=== PATIENT | male | born 1950 | race Caucasian/White ===

== ENCOUNTER 2025-02-25 14:50 | Observation (INO) | payer MEDICARE, OTHER, SELFPAY ==
[2025-02-25] VITALS (9 sets, daily range): BP systolic 107–142; BP diastolic 67–88; BMI 28.5; BMI 26.3
[2025-02-25 08:59] LABS: Hematocrit 47.7 % (39.0-52.0); Hemoglobin 15.9 g/dL (13.0-18.0); Mean Corp Hgb Conc. 33.3 g/dL (33.0-37.0); Mean Corpuscular Volume 87.5 fL (80.0-94.0); Nucleated Red Blood Cells % 0 % (-); Platelet Count 301 10^3/uL (130-400); Red Cell Dist. Width 13.8 % (11.5-14.5)
[2025-02-25 09:08] LABS: ALT (SGPT) 31 U/L (0-50); AST (SGOT) 31 U/L (17-59); Albumin 4.7 g/dl (3.5-5.0); Alkaline Phosphatase 66 U/L (38-126); Blood Urea Nitrogen 15 mg/dl (9-20); Calcium 9.4 mg/dl (8.4-10.2); Carbon Dioxide 26 mmol/L (22-30); Chloride 105 mmol/L (98-107); Estimated Creatinine Clearance 72 ml/min; Glucose 106 mg/dl (70-99); Potassium 4.3 mmol/L (3.5-5.1); Sodium 140 mmol/L (135-145); Total Protein 7.7 g/dl (6.3-8.2); eGFR > 60.00
[2025-02-25 09:19] LABS: Troponin I < 0.012 ng/ml
--- NOTE | 2025-02-25 12:48 | ED.CVA ---
History of Present Illness
General
Chief Complaint: CVA/TIA Symptoms
Source: patient
Time Seen by Provider: 02/25/25 08:42
Onset of Stroke Symptoms
Onset of symptoms known: Yes
Date of onset of symptoms: 02/25/25
History of Present Illness
History of Present Illness:
Note:
CHIEF COMPLAINT(S)
Numbness and weakness in the right arm and leg.
HISTORY OF PRESENT ILLNESS
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 The weakness resembles symptoms experienced during his previous stroke. He denied
experiencing any chest pain, speech changes, or visual disturbances. He mentioned that he felt weak and found it difficult to walk upon getting up to use the bathroom. The patient also reported noticing right ankle swelling the other day. He did not
experience any headaches or recent fevers. The patient previously smoked but quit four to five years ago.
PAST MEDICAL AND SURIGICAL HISTORY
The patient has a history of a hemorrhagic stroke at the age of 28.
COPD
SOCIAL HISTORY
The patient quit smoking four to five years ago.
PHYSICAL EXAM
General: Alert and oriented, no acute distress.
Eyes, Ears, Nose, Mouth, and Throat: Oral mucosa moist, vision intact with no defects noted.
Neurological: Cranial nerves are intact, no pronator drift, normal tuaith-rf-wtye coordination, and normal uoei-rc-cppk evaluations. Strength and coordination testing showed good muscle strength and normal proprioception. 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
No respiratory distress
Heart regular without murmur
No lower extremity edema
No peripheral cyanosis
PROBLEM LIST
Acute:
1. Numbness and weakness in the right arm and leg.
2. Swelling of the right ankle.
Chronic:
1. History of hemorrhagic stroke.
PLAN
1. Obtain a head CT scan to assess for any acute changes.
2. Perform laboratory workup to identify any underlying issues.
3. Monitor neurological status and ensure no progression of symptoms.
DIFFERENTIAL DIAGNOSIS
The Differential Diagnosis includes, in no particular order and is not limited to:
1. Transient ischemic attack (TIA)
2. Stroke recurrence
3. Peripheral neuropathy
4. Inflammatory demyelinating polyneuropathy
5. Multiple sclerosis
6. Hypertensive vascular disease
7. Migraine with aura
8. Spinal cord compression
9. Brain tumor
10. Electrolyte imbalance
EKG
My independent EKG interpretation is:
- Time of EKG: Not specified.
- Rhythm: Normal sinus rhythm.
- Heart Rate: 75 beats per minute.
- Aguirre: Left axis deviation.
- Notable Intervals: Not specified.
- Abnormalities:
- RSR pattern in lead V1, suggesting right bundle branch block.
- No Q waves observed.
Disposition:
SUMMARY OF ENCOUNTER
The patient, a male with a history of chronic obstructive pulmonary disease (COPD) and previous hemorrhagic stroke, presented with numbness and weakness in the right arm and leg. Although there is no acute focal neurological deficit observed during
the examination, his history of cerebrovascular accident (CVA) raises concern for a possible central nervous system event such as a transient ischemic attack (TIA) or stroke.
PLAN
Further workup is required to evaluate for TIA or CVA. Initiated treatment with aspirin. Plan for admission for further observation and management.
MEDICAL DECISION MAKING
- Number and Complexity of Problems Addressed: Chronic conditions affecting care, including history of COPD and past hemorrhagic stroke. Differential Diagnosis includes transient ischemic attack (TIA), stroke recurrence, peripheral neuropathy, and
other potential causes as per the differential list provided.
DIAGNOSIS
1. Suspected Transient Ischemic Attack (G45.9)
2. History of Hemorrhagic Stroke (I61.9)
3. Chronic Obstructive Pulmonary Disease (J44.9)
Past History
Past History
ED Past Medical History: Arrthythmia (SVT s/p ablation 06/10), COPD and CVA
ED Past Surgical History: None
Social History
Tobacco: Former smoker
Alcohol: None
Drug: None
Living: with family
Phy Exam
Physical Exam
Physical Exam:
.
Course
Orders/Labs/Results
Orders:
Orders
02/25/25 08:42
Electrocardiogram (*1) Stat
Reason for Study: Other
Other Reason for Exam: neuro symptoms
CT Head W/o Iv Contrast Urgent
Reason For Exam: R sided weakness, hx of ICH
Bedside Glucose- Treatment ONCE
Cardiac Monitoring- Treatment ONCE
EKG- Treatment ONCE
02/25/25 08:49
Complete Blood Count/With Diff Urgent
Comprehensive Metabolic Panel Urgent
Troponin I Urgent
02/25/25 12:58
Aspirin 325 mg PO NOW STA
02/25/25 13:24
Admit/Transfer Patient As Directed
Co-Sign Provider:
Level of Care: Observation services
Assign to:: Telemetry
Physician / Group: Hospitalist
Diagnosis: CVA/ TIA symtpoms
Patient Condition: Fair
Reason for Telemetry: CVA/TIA
Date to Stop Telemetry: 02/28/25
Time to Stop Telemetry: 11:00
Reason for Hospitalization: CVA/ TIA symptoms
Expected length of stay greater than two midnights?: Yes
ELOS- Estimated Length of Stay in days: 3
I certify the patient meets the requirements for IP care: Yes
02/25/25 13:30
PRN Pain Medication Management As Directed
May give lesser potent ordered pain med per pt: Yes
preference::
Protocol:: Medication orders for pain may be administered in a
manner that supports deferring to patient preference
when the pt is:
- Requesting an ordered lesser potent pain medication.
Least to most potent pain medications are defined
as: acetaminophen < NSAID < tramadol < opioids
(morphine, oxycodone, hydromorphone).
- Requesting a lesser dose of the same medication IF
ORDERED.
- Requesting a less intrusive route of administration
if both routes are prescribed by the provider (PO <
IV).
02/25/25 13:32
Code Status As Directed
Resuscitation Status: Do not resuscitate
Reached after discussion with pt or family/Healthcare POA: Yes
02/25/25 13:40
DNR Bracelet Application ONCE
02/25/25 15:32
Acetaminophen [Tylenol/Feverall] 650 mg RECTAL Q4HPRN PRN
Acetaminophen [Tylenol] 650 mg PO Q4HPRN PRN
02/25/25 15:32
Case Management Consult ONCE
Case Management Consult: Discharge Planning
Comment: stroke/tia
DIETARY IP CONSULT Routine
Reason for Consult: stroke/TIA
NEUROLOGY CONSULT Urgent
Consulting Provider: Jason Kidd
Was physician already notified: Yes
Reason for consult: CVA TIA
Education And Development Manager Urgent
Activity As Directed
Activity Level: As Tolerated
NIH Stroke Scale As Directed
Directions: Per protocol
Comment: every shift and with any change in condition or mental status
Neurological Checks As Directed
Frequency: q4h
Additional Instructions:: q4h x 24h upon admission to the floor, then qshift & with any change in condition
and mental status
Patient Education As Directed
Type: Stroke education packet
Comment: provide to patient and family
Pneumatic Compression Sleeves As Directed
Type: Knee high
Vital Signs As Directed
Frequency: Per unit guidelines
Ot Eval And Treat Routine
Pt Eval And Treat Routine
Activity Level: As Tolerated
Speech Therapy Eval & Treat Routine
DX Deep Vein Thrombosis Video Routine
02/25/25 16:23
Metoprolol Xl [Toprol Xl] 12.5 mg PO [id number] PRN palpitations
02/25/25 18:00
Enoxaparin Sodium [Lovenox] 40 mg SC QPM
Rosuvastatin Calcium [Crestor] 20 mg PO QPM
02/25/25 20:00
Budesonide/Formoterol 160/4.5 [Symbicort 160/4.5 Mcg Inhaler] 2 puff INH R BID
02/25/25 22:00
Aspirin Low Dose EC [Aspir Low (Enteric Coated)] 81 mg PO HS
02/26/25 05:50
Cardiovascular Evaluation IN AM
Complete Blood Count/With Diff IN AM
Magnesium IN AM
02/26/25 08:00
Aspirin Chewable [Low Strength Aspirin] 81 mg PO DAILY
Verapamil Extended Release [Calan Extended Release] 360 mg PO DAILY
02/28/25 11:00
DC Protocol for Telemetry ONCE
Abnormal Lab Results
02/25/25
08:49
WBC 13.1 H 10^3/uL
(4.8-10.8)
Abs Immat Gran (auto) 0.1 H 10^3/uL
(0-0.05)
Absolute Neuts (auto) 9.7 H 10^3/uL
(1.4-6.5)
Absolute Monos (auto) 1.3 H 10^3/uL
(0.1-0.6)
Lymphocytes % 13.6 L %
(20.5-51.1)
Monocytes % 9.7 H %
(1.7-9.3)
Glucose 106 H mg/dl
(70-99)
02/25/25 08:49
02/25/25 08:49
Vital Signs
Initial and Last Documented VS:
Initial Vital Signs
Temp Pulse Resp BP Pulse Ox
98.7 F 81 16 132/88 96
02/25/25 08:42 02/25/25 08:42 02/25/25 08:42 02/25/25 08:42 02/25/25 08:42
Last Documented Vital Signs
Temp Pulse Resp BP Pulse Ox
97.6 F 77 16 120/73 93
02/26/25 13:49 02/26/25 13:49 02/26/25 13:49 02/26/25 13:49 02/26/25 13:49
*Pulse Oximetry
SaO2: 94
Oxygen Mode of Delivery: Room air
Patient hypoxic: no
*Informaticist Interpretation
Rate: normal
Interpretation: normal
Rhythm: sinus
*Critical Care Note
Total Time (30-74mins, 75-104mins- exclusive of procedures): 30 minutes
ED Attending Note
-
Portions of this chart may have been created with voice recognition software.� Occasional wrong word or��sound alike� substitutions may have occurred due to the inherent limitations of voice recognition software.
Discharge Plan
Departure
Patient Disposition: Admit
Date of Disposition: 02/25/25
Time of Disposition: 12:53
Admit to: Telemetry
Presentation/result/management discussed w/ accepting MD/DO: Hospitalist
Discharge Problem:
possible CVA
Interventions
Interventions:
*Risk Screen - Suicide Last Done: 02/25/25 08:47
*General Assessment Last Done: 02/25/25 08:47
*Neglect/Abuse Screening Last Done: 02/25/25 08:47
*ED- Fall Risk Assessment Last Done: 02/25/25 08:47
*ED COVID-19 Vaccine History Last Done: 02/25/25 08:47
*Nursing Disposition Last Done: 02/25/25 15:12
ED- Pulmonary Assessment Last Done: 02/25/25 08:49
ED- Neurological Assessment Last Done: 02/25/25 08:49
ED- Cardiac Assessment Last Done: 02/25/25 08:49
ED Swallowing Screen Last Done: 02/25/25 09:17
Discharge Date and Time
Discharge Date/Time: 02/25/25 15:12
--- NOTE | 2025-02-25 13:04 | W.PN.UPDATE ---
Update Note
Progress Note Update
I personally performed a history and physical exam of the patient and discussed management with the resident. I reviewed the resident's note and agree with the documented findings and plan of care HPI/CC.
74 y/o M who p/w CC R-sided weakness which began when he woke up this AM.
Gen: NAD, AAOx3.
Eyes: EOMI, PERRLA, no scleral icterus.
Neck: supple.
CV: RRR, +S1/S2, no m/r/g.
Resp: CTAB, no rales, wheezes, or rhonchi.
Abd: +BS, soft, NT, ND
Skin: No rashes.
Neuro: CN 2-12 intact, RUE 4/5, RLE 3/5
Psych: Normal mood and affect.
Lab Results
02/25/25
08:49
WBC 13.1 H
RBC 5.45
Hgb 15.9
Hct 47.7
MCV 87.5
MCH 29.2
MCHC 33.3
RDW 13.8
Plt Count 301
MPV 8.9
Abs Immat Gran (auto) 0.1 H
Absolute Neuts (auto) 9.7 H
Absolute Lymphs (auto) 1.8
Absolute Monos (auto) 1.3 H
Absolute Eos (auto) 0.2
Absolute Basos (auto) 0.1
Immature Gran % 0.5
Neutrophils % 74.5
Lymphocytes % 13.6 L
Monocytes % 9.7 H
Eosinophils % 1.1
Basophils % 0.6
Nucleated RBC % 0
Sodium 140
Potassium 4.3
Chloride 105
Carbon Dioxide 26
BUN 15
Creatinine 0.9
Estimated Creat Clear 72
eGFR > 60.00
Glucose 106 H
Calcium 9.4
Total Bilirubin 1.1
AST 31
ALT 31
Alkaline Phosphatase 66
Troponin I < 0.012
Total Protein 7.[address] Brain: No evidence of acute intracranial abnormality.
ECG (read by me): NSR @ 75, L-axis, RBBB, no acute ST/TW changes
R-sided weakness/paraesthesias:
-h/o hemorrhagic CVA
-CT Brain unremarkable as above
-monitor on tele
-neurochecks Q4H
-c/s neuro
-check MRI brain
-cont statin
COPD:
-not in acute exac
-cont Breztri
SVT s/p ablation:
-cont BB/CCB with holding parameters
FULL/Lovenox
[2025-02-25] MEDS: ASPIRIN 325 MG PO (13:26)
--- NOTE | 2025-02-25 13:55 | HPS.HSE ---
Addendum entered and electronically signed by Maninder Lopez MD, Resident 02/27/25 16:52:
Allergies
Allergy/AdvReac Type Severity Reaction Status Date / Time
No Known Allergies Allergy Verified 09/03/22 16:29
Home Medications
multivitamin with folic acid 400 mcg tablet (Tab-A-Chuck) 1 tab PO DAILY Supplement 05/20/19
verapamil 180 mg tablet,extended release 360 mg (2 x 180 mg) PO DAILY #60 tabs 05/26/19
aspirin 81 mg tablet,delayed release 81 mg PO HS Blood Clot Prevention/Tx 02/25/25
budesonide 160 mcg-glycopyr 9 mcg-formot 4.8 mcg/actuation HFA inhaler (Breztri Aerosphere) 2 inh inhalation R BID Lung/Breathing Issues 02/25/25
metoprolol succinate 25 mg tablet,extended release 24 hr 12.5 mg PO [id number] PRN palpitations 02/25/25
rosuvastatin 20 mg tablet (Crestor) 20 mg PO DAILY High Cholesterol 02/25/25
Original Note:
Family Physician
-
Family Physician: Emma Collins MD
Chief Complaint
-
Acute right-sided weakness extending from right shoulder/arm all the way down to right leg
History of Present Illness
Mr. Laci Phelps is a 74-year-old male with history of SVT (no ablation), COPD, osteoporosis, and CVA (38 years ago) who presented to the ED today with right-sided arm and leg weakness. He states that this is his second episode. His first
episode was last week. It happened in the morning when he woke up, felt numb/weak from left shoulder/arm all the way down to the left leg, but was able to weight-bear and states that it resolved on its own in about an hour. Today however, he woke
up with right-sided weakness and was unable to walk like his usual self. He endorsed stiffness, weakness (generalized and specific), and no resolution despite waiting through the morning. As such, he decided to come to the ED for further
evaluation. His zhpcmjks-ir-ony Doris is bedside to endorse history. Of note, he denies nausea/vomiting, chest pain, dizziness, vision changes, paralysis, recent infection, recent travel, sick contacts, or any other symptoms. He gets most of his
care at the [facility], for which records are pending. In the ED, CT head is negative for acute intracranial abnormality. Physical exam is notable for decreased strength in right lower extremity.
Medical History
Past Medical History
Past Medical History: Reports Arrhythmia (SVT) and COPD (Former smoker, quit in 2019)
Additional Past Medical History:
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
Past Surgical History: Reports None
Social History
Tobacco: Former Smoker (18-vaub-dcnb history, quit in 2019)
Alcohol: None
Drug: None
Living: With Family
Family History
Family History: Not pertinent
Allergies / Home Medications
Allergies reflects when Allergies were last updated in [facility].
Home Medications with original date entered in [facility]
Allergy/Medication List:
No known allergies
Review of Systems
-
History Source: Patient
A 12 point ROS was completed and negative except as noted: Yes
Neurological: Reports Weakness (Right shoulder, right arm, right leg) and Numbness (Right shoulder, right arm, right leg)
Physical Exam
Vital Signs
Vital Signs
Temp Pulse Resp BP Pulse Ox
98.7 F 64 15 107/69 94
02/25/25 08:42 02/25/25 12:19 02/25/25 12:19 02/25/25 12:19 02/25/25 12:48
Physical Exam
General: Well Developed, Well Nourished, No Apparent Distress, Comfortable, Conversant and Other (Sitting up in bed with right arm slumped, answering and conversing appropriately)
HEENT: NormoCephalic, Moist mucous membranes and Atraumatic
Respiratory: Clear and Non Labored Respirations
Cardiac: S1/S2 and Tachycardia (Baseline)
GI: Soft, Non Tender, Non Distended and Normal Bowel Sounds
Skin: Warm and Dry
Neuro: AO x 3, No Motor Deficits (Right-sided weakness, worse in the legs) and No Sensory Deficits
Psych: Calm and Intact Judgment/Insight
Laboratory Results
-
02/25/25 08:49
02/25/25 08:49
Laboratory Results
Total Bilirubin 1.1 mg/dl (0.2-1.3) 02/25/25 08:49
AST 31 U/L (17-59) 02/25/25 08:49
ALT 31 U/L (0-50) 02/25/25 08:49
Alkaline Phosphatase 66 U/L (38-126) 02/25/25 08:49
Troponin I < 0.012 ng/ml 02/25/25 08:49
Data Reviewed
-
Diagnostic Radiology: Discussed with Physician
Lab Data: Discussed with Physician
Impression/Plan
-
IMPRESSION:
Mr. Laci Phelps is a 74-year-old male with history of SVT (no ablation), COPD, osteoporosis, and CVA (38 years ago) who presented to the ED today with right-sided arm and leg weakness with a negative head CT being admitted for observation on
telemetry along with workup for possible TIA.
PLAN:
#Right-sided weakness, new
#History of hemorrhagic CVA in 1986
-S/p aspirin 325 mg 02/25/2025
-Monitor on telemetry, neurochecks every 4 hours
-Follow-up MRI brain
-Continue rosuvastatin 20 mg daily: Consider redosing after lipid panel
-Continue aspirin 81 mg p.o. at bedtime
#COPD
-Continue Breztri Aerosphere inhaler twice daily
#SVT
-Continue verapamil 360 mg p.o. daily
-Continue metoprolol succinate 12.5 mg p.o. twice daily
DVT prophylaxis: Lovenox
CODE STATUS: DNR
--- NOTE | 2025-02-25 15:25 | PTCARENOTE ---
02/25- Patient transferred and oriented to unit without issue. AAOX3. Skin CDI. Telemetry #41, currently NSR with a BBB. NIH score is currently 0. Patient denies any current needs or concerns.
--- NOTE | 2025-02-25 15:27 | CM ---
Patient seen at bedside in ED> Patient states that he lives in a 2 story home with his son. Patient stated that he has no DME at home and [facility], Dr[facility] Adam. [facility] and if
needed will use the [facility] in [place]. Patient reviewed OBS/CARPIO form with CM and signed form scanned into medical record by mobile unit assistant. Patient plan is to return to home with patient son. CM will continue to follow for discharge planning needs.
Plan; home with no needs vs home with VN; pending medical treatment plan.
[2025-02-25] MEDS: CRESTOR 20 MG PO (17:28)
[2025-02-25] MEDS: LOVENOX 40 MG SC (17:29)
[2025-02-25] MEDS: SYMBICORT 160/4.5 MCG INHALER 2 PUFF INH (20:16)
[2025-02-26 03:09] VITALS: BP 128/76
[2025-02-26 06:28] LABS: Hematocrit 43.8 % (39.0-52.0); Hemoglobin 14.4 g/dL (13.0-18.0); Mean Corp Hgb Conc. 32.9 g/dL (33.0-37.0); Mean Corpuscular Volume 88.0 fL (80.0-94.0); Nucleated Red Blood Cells % 0 % (-); Platelet Count 245 10^3/uL (130-400); Red Cell Dist. Width 13.6 % (11.5-14.5)
[2025-02-26 06:40] LABS: HDL Cholesterol 66 mg/dl; LDL Cholesterol, Calculated 64 mg/dl; Magnesium 2.2 mg/dl (1.6-2.3); Very Low Density Lipoprotein 18 mg/dl (0-30)
[2025-02-26] MEDS: SPIRIVA RESPIMAT 2.5 MCG 2 PUFF INH (07:46)
[2025-02-26] MEDS: SYMBICORT 160/4.5 MCG INHALER 2 PUFF INH (07:46)
--- NOTE | 2025-02-26 07:48 | W.PN.UPDATE ---
Update Note
Progress Note Update
I saw and evaluated the patient. I reviewed the resident�s note and agree with findings and plan as documented in the resident�s note.
Patient reports right-sided weakness is improved.
Gen: NAD, AAOx3.
Eyes: EOMI, PERRLA, no scleral icterus.
Neck: supple.
CV: remains RRR, +S1/S2, no m/r/g.
Resp: remains CTAB, no rales, wheezes, or rhonchi.
Abd: +BS, soft, NT, ND
Skin: No rashes.
Neuro: CN 2-12 intact, RUE 5/5, RLE 5/5
Psych: Normal mood and affect.
CT Brain: No evidence of acute intracranial abnormality.
ECG (read by me): NSR @ 75, L-axis, RBBB, no acute ST/TW changes
CTA head/neck: Findings compatible with Bovine aortic arch, as noted above. Minor atherosclerotic plaque to carotid bifurcations and proximal internal carotid arteries bilaterally without hemodynamically significant stenosis. Mildly dominant left
vertebral artery. No findings to suggest internal carotid artery or vertebral artery dissection bilaterally. No findings to suggest proximal intracranial arterial stenosis bilaterally. Suspected bilateral subcentimeter low-attenuation thyroid
nodules. Consider elective Thyroid Ultrasound for more complete evaluation.
MRI brain: No evidence of acute intracranial abnormality. Focal area of old infarction in the left hemisphere as described, with resultant hydrocephalus ex vacuo of the left lateral ventricle. 2 mm focus of CSF signal intensity in the posterior
aspect of the left lentiform nucleus, which could represent old lacunar infarcts or prominent perivascular space. Mild to moderate diffuse atrophy. Mild T2 and FLAIR white matter hyperintensities, commonly seen with aging and usually attributed to
small vessel ischemic disease.
R-sided weakness/paraesthesias:
-h/o hemorrhagic CVA
-Tele reviewed, no afib/flutter
-neurochecks Q4H
-MRI brain without acute intracranial abnormality as above
-cont statin/ASA
-neuro saw in c/s. Case discussed with Dr. Kidd on 02/26/25 and he feels that the patient had recrudescence of old stroke. No evidence of new stroke or new TIA. Cont ASA/statin. If symptoms persist will get outpt EEG.
COPD:
-not in acute exac
-cont Breztri
SVT s/p ablation:
-cont BB/CCB with holding parameters
FULL/Lovenox
Medically cleared for discharge.
Total time spent on d/c = 35 min. This included today's physical exam, progress note, review of laboratory and diagnostic data, preparation of discharge documents and prescriptions, and discussions about the pt's hospital course and discharge plan
with the patient and other medical technologist blood bank involved in the patient's care.
[2025-02-26 07:57] LABS: ALT (SGPT) 24 U/L (0-50); AST (SGOT) 24 U/L (17-59); Albumin 3.9 g/dl (3.5-5.0); Alkaline Phosphatase 57 U/L (38-126); Blood Urea Nitrogen 20 mg/dl (9-20); Calcium 8.6 mg/dl (8.4-10.2); Carbon Dioxide 23 mmol/L (22-30); Chloride 107 mmol/L (98-107); Estimated Creatinine Clearance 77 ml/min; Glucose 87 mg/dl (70-99); Potassium 4.1 mmol/L (3.5-5.1); Sodium 137 mmol/L (135-145); Total Protein 6.5 g/dl (6.3-8.2); eGFR > 60.00
[2025-02-26] MEDS: CALAN EXTENDED RELEASE 360 MG PO (08:08)
[2025-02-26] MEDS: LOW STRENGTH ASPIRIN 81 MG PO (08:08)
[2025-02-26 08:36] VITALS: BP 125/75
--- NOTE | 2025-02-26 08:49 | CON.NEURO4 ---
Addendum entered and electronically signed by Jason Kidd MD 02/26/25 12:57:
Studies reviewed.
I have personally examined the patient. I reviewed and agree with the FUSE MAKER's Note.
My addenda:
Awake, alert, interactive. No acute distress.
Speech intact.
Follows 2-step requests w/o difficulty. No tremor.
Extra-ocular movements grossly intact with exception of 1+ right eye exotropia
Facial movements full and symmetric. Hearing intact to normal conversational volume.
Normal UE movements bilaterally.
Neck: full ROM.
Chest: no dyspnea
Heart: no JVD
Ext: (-) Clubbing, (-) Cyanosis, (-) Edema
IMPRESSIONS/RECOMMENDATIONS:
Abrupt onset of right sided weakness with prior history of left hemispheric hemorrhagic stroke
In light of the patient's unremarkable MRI of the brain for acute events, this may represent either recrudescence due to unclear etiology or may be due to focal onset seizures
Would continue the patient on usual aspirin as there is no evidence of a structural abnormality producing new symptoms
Check outpatient EEG to determine if focal onset seizures are producing his current symptoms
Continue current medications for cholesterol lowering
D/W patient
Will continue to follow as outpatient.
Original Note:
Documented by User: Jayna Ricketts NP 02/26/25 09:50
Consultation - Neurology 4
-
CONSULTING PHYSICIAN: Jason Kidd MD
REFERRING PHYSICIAN: Hospitalists/Dr. Tamara MD Resident
DICTATED BY: WILSON Lopez
DATE/TIME OF REQUEST: 02/25/25
DATE/TIME OF CONSULTATION: 02/26/25
Reason for Consultation: Right-sided weakness
History of Present Illness:
This is a 74-year-old left-handed male who has presented to the hospital on 02/25/25 with report of right-sided weakness. Patient has a history of a left hemisphere hemorrhagic stroke in 1986 associated with right-sided weakness that completely
resolved. He reports that he went to bed two nights ago on 02/24/25 at 2200 in his usual state. He didn't wake up during that night at all, but awoke yesterday for the day at 0700 and noted his right arm and leg felt weak. He is vague about details,
but notes that his [id number] might have been concerned about these symptoms in addition to his right ankle being swollen last week, but he notes it was mild compared to his current symptoms. CT head was obtained on arrival and is negative for
any acute abnormalities. He was not a candidate for TNK/IAT due to NIHSS 0. Today (02/26/25), he notes that his right side still feels weak, it's only 60% of his baseline. He endorses difficulty walking to the bathroom due to his right leg weakness,
he has to hold onto furniture. He denies any headache, dizziness, vision changes, speech/swallow difficulty, and numbness. He is taking aspirin 81mg daily at home.
Past Medical History: Left hemisphere hemorrhagic stroke 1986, SVT, COPD
Surgical History: Cardiac cath, vasectomy.
Family History: Reviewed and noncontributory.
Social History: Former smoker.
Allergies: No known allergies.
Home Medications: See below.
Review of Symptoms:
Patient denies any fever, headache, chest pain, shortness of breath, GI or symptoms.
�Per the HPI.�All systems are reviewed negative except above.
Physical Exam:
The patient is afebrile, abdomen is nondistended, breathing is unlabored, skin is warm and dry, no edema.
NIH Stroke Scale:
I performed the NIH stroke scale on the patient on 02/26/25 at 0900. The patient scored 1 points on the NIH stroke scale assessment, which were assigned as follows: See below.
Neurologic Examination:
The patient is awake, alert and oriented x 3. He is able to follow commands and answer questions appropriately. There is no aphasia or dysarthria. On cranial nerve assessment, pupils are 3 mm bilateral, round and reactive to light and
accommodation. Visual phan are full. 1+ esotropia left eye. Extraocular movements are intact, slow saccades. Facial sensations are intact and bilaterally symmetrical, there is no facial asymmetry. Hearing is intact bilaterally to normal
conversation volume. Tongue palate and uvula are midline. Sternocleidomastoid strengths are full bilaterally. Motor strengths are 5/5 left upper, 5-/5 right upper, 4+ right lower, and 5/5 left lower extremities on medical research [place] scale.
There is slight drift in the RLE. No involuntary movement noted. Deep tendon reflexes are 2+ bilateral upper and lower extremities and Babinski is absent bilaterally. There was no extinction noted on double simultaneous stimulation. Coordination is
intact by finger to nose bilaterally.
Lab Results: See below.
Neuro Imaging:
1. CT Head 02/25/25: There is focal decreased density involving left posterior insula, which also extends superiorly to involve the periventricular white matter. Findings likely represent encephalomalacia in this patient with reported history of
previous cranial hemorrhage. No acute abnormality.
Differentials for the patient's presentation include:
1. Concern for an acute/subacute left hemisphere ischemic infarct producing ongoing right-sided weakness.
2. CT head is negative for acute hemorrhage.
3. Need vessel imaging to rule out large vessel stenosis.
Patient has the following risk factors for their symptoms: HTN, HLD, hx stroke, age, hx smoking
IV Tenecteplase/IAT candidacy: Not a candidate due to NIHSS 0 on arrival.
Recommendations:
-Would initiate DAPT with aspirin 81mg and clopidogrel 75mg daily for 21 days. Checking aspirin efficacy.
-Goal normotension as symptom onset was 24 hours ago.
-CTA head/neck pending.
-MRI brain noncontrast pending.
-LDL goal <70. LDL is 64. Okay to continue home rosuvastatin 20mg daily as LDL is at goal.
-Goal normoglycemia, hbA1c is pending.
-NIHSS and neurological checks per unit guidelines.
-Provide patient with a stroke education packet.
-PT/OT evaluations.
-DVT prophylaxis.
Discussed patient care with: Dr. Kidd, the patient
Vital Signs and Labs
-
Vital Signs and Labs:
Vital Signs
Temp Pulse Resp BP Pulse Ox
97.7 F 70 16 125/75 94
02/26/25 08:36 02/26/25 08:36 02/26/25 08:36 02/26/25 08:36 02/26/25 08:36
Lab Results
02/26/25 05:50
02/26/25 07:20
Sodium Cancelled 02/26/25 07:20
Potassium Cancelled 02/26/25 07:20
BUN Cancelled 02/26/25 07:20
Glucose Cancelled 02/26/25 07:20
Calcium Cancelled 02/26/25 07:20
LDL Cholesterol, Calc 64 mg/dl 02/26/25 05:50
Medications
-
Active Medications
Generic Name Dose Route Start Last Admin
Trade Name Freq PRN Reason Stop Dose Admin
Acetaminophen 650 mg 02/25/25 15:32
Acetaminophen 650 Mg Rectal Suppository RECTAL 03/25/25 15:31
Q4HPRN PRN
FELDMAN, mild pain, or temp >100.4F
Acetaminophen 650 mg 02/25/25 15:32
Acetaminophen 325 Mg Tablet PO 03/25/25 15:31
Q4HPRN PRN
FELDMAN, mild pain, or temp >100.4F
Aspirin 81 mg 02/26/25 08:00 02/26/25 08:08
Aspirin 81 Mg Chewable Tablet PO 03/26/25 07:59 81 mg
DAILY PRINCE Administration
Budesonide/Formoterol Fumarate 2 puff 02/25/25 20:00 02/26/25 07:46
Symbicort Inhaler 160/4.5 INH 03/25/25 19:59 2 puff
R BID PRINCE Administration
Protocol
Enoxaparin Sodium 40 mg 02/25/25 18:00 08/06/25 17:29
Enoxaparin Sodium 40 Mg/0.4 Ml Syringe SC 03/25/25 17:59 40 mg
QPM PRINCE Administration
Metoprolol Succinate 12.5 mg 02/25/25 16:23
Metoprolol 12.5 Mg Extended Release Dose (1/2 Of 25 Mg Xl Tablet) PO 03/25/25 16:22
[id number] PRN
palpitations
Rosuvastatin Calcium 20 mg 02/25/25 18:00 02/25/25 17:28
Rosuvastatin (Crestor) 20 Mg Tablet PO 03/25/25 17:59 20 mg
QPM PRINCE Administration
Sodium Chloride 0 flush 02/25/25 16:00
Sodium Chloride 0.9% (Flush) Syringe IV 03/25/25 15:59
PER PROTOCOL PRINCE
Tiotropium [place] 2 puff 02/26/25 08:00 02/26/25 07:46
Tiotropium (Spiriva Respimat) 2.5 Mcg Inhaler INH 03/26/25 07:59 2 puff
R DAILY PRINCE Administration
Protocol
Verapamil HCl 360 mg 02/26/25 08:00 02/26/25 08:08
Verapamil 180 Mg (Extended Release) Tablet PO 03/26/25 07:59 360 mg
DAILY PRINCE Administration
Home Medications
�Medication �Instructions �Recorded
multivitamin with folic acid 400 1 tab PO DAILY Supplement 05/20/19
mcg tablet (Tab-A-Chuck)
verapamil 180 mg tablet,extended 360 mg (2 x 180 mg) PO DAILY #60 05/26/19
release tabs
aspirin 81 mg tablet,delayed 81 mg PO HS Blood Clot 02/25/25
release Prevention/Tx
budesonide 160 mcg-glycopyr 9 2 inh inhalation R BID 02/25/25
mcg-formot 4.8 mcg/actuation HFA Lung/Breathing Issues
inhaler (Breztri Aerosphere)
metoprolol succinate 25 mg 12.5 mg PO [id number] PRN palpitations 02/25/25
tablet,extended release 24 hr
rosuvastatin 20 mg tablet (Crestor) 20 mg PO DAILY High Cholesterol 02/25/25
NIH Stroke Score
Subsequent NIH Scale
Date of Subsequent NIH Scale: 02/26/25
Time of Subsequent NIH Scale: 09:00
NIH Stroke Score
Level of Consciousness: 0 - Alert
LOC Questions: 0-Answers both correctly
LOC Commands: 0-Performs both correctly
Best Horizontal Gaze: 0-Normal
Visual Phan: 0=Normal, no visual loss
Facial Palsy: 0=Normal, symmetrical
Motor - Right Arm: 0=No drift 10 seconds
Motor - Left Arm: 0=No drift 10 seconds
Motor - Right Le-Drift < 5 seconds
Motor - Left Le-No drift 5 seconds
Limb Ataxia: 0-Absent
Sensation: 0-Normal
Best Language: 0-No aphasia
Dysarthria: 0-Normal
Extinction and Inattention: 0-No abnormality
NIH Total Score:: 1
Modified [place] (mRS) Score
Modified [place] Scale (mRS): Slight disability. Able to look after own affairs.
Score: 2
Alteplase Contraindication
Inclusion and Exclusion criteria reviewed: Yes

Documented by User: Jason Kidd MD 02/26/25 10:23
NIH Stroke Score
NIH Stroke Score
NIH Total Score:: 1
Modified [place] (mRS) Score
Score: 2
[2025-02-26] MEDS: ATIVAN 1 MG PO (09:15)
[2025-02-26 11:04] VITALS: BP 122/73
--- NOTE | 2025-02-26 11:21 | W.PN.HOSP.TC ---
Today's Communication/Plan
-
Follow-up brain MRI and CTA head and neck without IV contrast
Initiate DAPT on discharge for 21 days
PT/OT consult
Assessment / Plan
Assessment / Plan
Mr. Laci Phelps is a 74-year-old male with history of SVT (no ablation), COPD, osteoporosis, and CVA (38 years ago) who presented to the ED today with right-sided arm and leg weakness with a negative head CT being admitted for observation on
telemetry along with workup for possible TIA. On 02/26/2025, 1 day after admission, his symptoms transiently improved, with imaging studies pending and neuro following.
PLAN:
#Right-sided weakness, new
#History of hemorrhagic CVA in 1986
- Consult neuro, appreciate recs
--Initiate DAPT with aspirin 81 mg and clopidogrel 75 mg daily for 21 days
--Provide patient with a stroke education packet
--PT/OT consult
-S/p aspirin 325 mg 02/25/2025
-Monitor on telemetry, neurochecks every 4 hours
-Follow-up MRI brain and CTA head and neck without IV contrast
-Continue rosuvastatin 20 mg daily (per lipid panel 02/25/2025)
-Continue aspirin 81 mg p.o. at bedtime
#COPD
-Continue Breztri Aerosphere inhaler twice daily
#SVT
-Continue verapamil 360 mg p.o. daily
-Continue metoprolol succinate 12.5 mg p.o. twice daily
DVT prophylaxis: Lovenox
CODE STATUS: DNR
Anticipated Discharge: Within 24 hours (Pending unremarkable brain MRI and CTA)
Subjective/Interval History
-
Date of Service: February 26, 2025
-This morning, we had a brief discussion as he was about to be transported for his imaging studies. His NIHHS stroke scale is 0 today. He reports being able to bear weight on his right leg and improved strength of right leg and right arm compared
to yesterday. Overall, he is generally feeling better and states that he is slowly going back to his baseline state of health.
Objective Data
-
Labs:
Laboratory Results
02/25/25 02/26/25 02/26/25
19:30 05:50 07:20
WBC 9.7
Hgb 14.4
Hct 43.8
Plt Count 245
Sodium Cancelled 137 Cancelled
Potassium Cancelled 4.1 Cancelled
Chloride Cancelled 107 Cancelled
Carbon Dioxide Cancelled 23 Cancelled
BUN Cancelled 20 Cancelled
Creatinine Cancelled 0.9 Cancelled
Glucose Cancelled 87 Cancelled
Calcium Cancelled 8.6 Cancelled
Total Bilirubin Cancelled 0.9 Cancelled
AST Cancelled 24 Cancelled
ALT Cancelled 24 Cancelled
Alkaline Phosphatase Cancelled 57 Cancelled
Vital Signs:
Vital Signs
Temp Pulse Resp BP Pulse Ox
97.7 F 72 16 122/73 92
02/26/25 11:04 02/26/25 11:04 02/26/25 11:04 02/26/25 11:04 02/26/25 11:04
I&O
02/25/25 02/26/25 02/27/25
06:59 06:59 06:59
Intake Total 0 / 0
Balance 0 / 0
Review of Systems
-
History Source: Patient
All other systems: Reviewed and negative
Constitutional: Reports Weakness (Right-sided, slowly improving)
Neuro: Reports Weakness (Right leg greater than left)
Physical Exam
-
General: Well Developed, Well Nourished, No Apparent Distress, Comfortable, Conversant and Other (In a stretcher in the middle of the hallway about to be transported to imaging studies)
HEENT: Normocephalic, Atraumatic and Moist Mucous Membranes
Respiratory: Clear to Auscultation and Non Labored Respirations
Cardiac: Regular Rhythm and S1/S2
GI: Soft, Nontender and Nondistended
Musculoskeletal: No Clubbing, No Cyanosis and No Edema
Skin: Warm and Dry
Neuro: AO x 3, No Motor Deficits (Bilateral lower extremity strength 4/5 compared to yesterday's exam, where right lower extremity was 3/5), Nonfocal/Grossly Intact and No Sensory Deficits
Psych: Calm and Intact Judgement/Insight
[2025-02-26 11:45] VITALS: BP 116/63; PULSE 66; O2SAT 94
[2025-02-26 11:49] VITALS: BP 116/63; PULSE 67; O2SAT 94
[2025-02-26 13:06] LABS: VerifyNow Aspirin 405 ARU
[2025-02-26 13:20] LABS: Urine Character Clear (Clear)
[2025-02-26 13:49] VITALS: BP 120/73
[2025-02-26 14:09] LABS: Urine Squamous Cell 0-2 /LPF (Few)
[2025-02-26 14:10] LABS: Urine Red Blood Cell 0-2 /HPF (0-2); Urine Urothelial Cell 0-2 /LPF (FEW); Urine White Cell 0-2 /HPF (0-5)
--- NOTE | 2025-02-26 14:56 | CM ---
CM reviewed chart, call to patient to offer VN services, left direct number for CM. Will continue to follow for all discharge planning needs.
Plan; home no needs, left VM to offer VN
--- NOTE | 2025-02-26 16:20 | W.DCSUMMARY ---
Discharge Summary
Discharge Data
Date of Admission: 02/25/25
Date of Discharge: 02/26/25
-
Pending Results: No
Hospital Course
Discharging Physician : Maninder Lopez MD/[facility]
Disposition : Home
Principal Discharge diagnosis : R-sided weakness/paraesthesias
Hospital Course : Mr. Laci Phelps is a 74-year-old male with history of SVT (no ablation), COPD, osteoporosis, and CVA (38 years ago) who presented to the ED on 02/26/25 with right-sided arm and leg weakness. He states that this is his second
episode. His first episode was last week. It happened in the morning when he woke up, felt numb/weak from left shoulder/arm all the way down to the left leg, but was able to weight-bear and states that it resolved on its own in about an hour. In
the ED, he woke up with right-sided weakness and was unable to walk like his usual self. He endorsed stiffness, weakness (generalized and specific), and no resolution despite waiting through the morning. As such, he decided to come to the ED for
further evaluation. His [id number] Doris was bedside to endorse history. He denied nausea/vomiting, chest pain, dizziness, vision changes, paralysis, recent infection, recent travel, sick contacts, or any other symptoms. He gets most of his
care at the [facility], for which records are pending. In the ED, CT head is negative for acute intracranial abnormality. Physical exam was notable for decreased strength in right lower extremity and MRI brain & CTA H/N as below (unremarkable for acute
processes). Neurology was consulted, and felt that his etiology unclear. His symptoms improved transiently on 02/26/2025, and he was discharged on home medications.
Important imaging findings :
CTA head/neck: Findings compatible with Bovine aortic arch, as noted above. Minor atherosclerotic plaque to carotid bifurcations and proximal internal carotid arteries bilaterally without hemodynamically significant stenosis. Mildly dominant left
vertebral artery. No findings to suggest internal carotid artery or vertebral artery dissection bilaterally. No findings to suggest proximal intracranial arterial stenosis bilaterally. Suspected bilateral subcentimeter low-attenuation thyroid
nodules. Consider elective Thyroid Ultrasound for more complete evaluation.
MRI brain: No evidence of acute intracranial abnormality. Focal area of old infarction in the left hemisphere as described, with resultant hydrocephalus ex vacuo of the left lateral ventricle. 2 mm focus of CSF signal intensity in the posterior
aspect of the left lentiform nucleus, which could represent old lacunar infarcts or prominent perivascular space. Mild to moderate diffuse atrophy. Mild T2 and FLAIR white matter hyperintensities, commonly seen with aging and usually attributed to
small vessel ischemic disease.
Discharge Plan
-
Patient Disposition: Home (Routine Discharge)
Discharge Diagnosis/Procedures: Recrudescence of old left-sided stroke
Condition: Good
Diet: Low Cholesterol
Activity: As tolerated
Driving Restrictions: As prior to admission
Bathing Restrictions: None
Referrals:
Emma Collins MD [Family Provider, [facility]] - in less than 1 week
Referral Note: Follow-up regarding this hospitalization with your PCP within a week of discharge.
Prescriptions:
Continued
multivitamin with folic acid [Tab-A-Chuck] 1 TABLET tablet
1 tab PO DAILY
verapamil 180 MG tablet extended release
360 mg PO DAILY Qty: 60 2RF
metoprolol succinate 25 mg tablet extended release 24 hr
12.5 mg PO [id number] PRN (Reason: palpitations )
aspirin 81 mg Tablet,Delayed Release (Dr/Ec)
81 mg PO HS
rosuvastatin [Crestor] 20 mg Tablet
20 mg PO DAILY
Breztri Aerosphere 160-9-4.8 mcg/actuation Hfa Aerosol Inhaler
2 inh INHALATION R BID
Discharge Orders:
Discharge Patient (As Directed); Ordered 02/26/25
Ordered By: Misael Albert
Discharge Date and Time
Discharge Date/Time: 02/26/25 15:23
Print Language: [id number]
== END 2025-02-26 15:23 | disposition home or self-care (01) ==
LOC: 4 WEST ACU 14:50
PROVIDERS: ADMITTING PHYSICIAN Internal Medicine; CONSULT PHYSICIAN Psychiatry & Neurology Neurology; EMERGENCY PHYSICIAN Emergency Medicine; FAMILY PHYSICIAN Family Medicine
DX: R53.1 Weakness (principal); R20.2 Paresthesia of skin; I67.82 Cerebral ischemia; G91.9 Hydrocephalus, unspecified; M25.471 Effusion, right ankle; M81.0 Age-related osteoporosis without current pathological fracture; J44.9 Chronic obstructive pulmonary disease, unspecified; I47.10 Supraventricular tachycardia, unspecified; I65.23 Occlusion and stenosis of bilateral carotid arteries; I45.10 Unspecified right bundle-branch block; E04.1 Nontoxic single thyroid nodule; Z66 Do not resuscitate; Z87.891 Personal history of nicotine dependence; Z86.73 Personal history of transient ischemic attack (TIA), and cerebral infarction without residual deficits; Z79.82 Long term (current) use of aspirin; Z79.51 Long term (current) use of inhaled steroids; Z86.79 Personal history of other diseases of the circulatory system; Z79.899 Other long term (current) drug therapy
CPT/HCPCS: 70450; 70496; 70498; 70551; 80053; 80061; 81003; 81015; 83735; 84484; 85025; 85576; 93005; 94640; 97163; 97167; 99291; G0378; Q9967